=== PATIENT | female | born 1955 | race Caucasian/White ===

== ENCOUNTER → 2016-09-02 | Outpatient (CLI) | payer OTHER ==
[~2016-09-02] VITALS: Ht 170.2 cm; Wt 86.6 kg
[~2016-09-02] MED LIST: ADVAIR HFA 230M12 GM INH; ALVESCO6.1 INH; ASPIRIN81 M2 PO; ATENOLOL 25 MG25 M1 PO; DOXYCYCLINE 10100 MG PO; GAMUNEX-C40 GM/400 IJ; HYDROCODON-ACE1 EAC8 PO; HYDROCODONE-AP1 EAC6 PO; HYDROXYCHLOROQ200 M1 PO; INHALER INH; LEVALBUTER1.25 MG/0. INH; NEXIUM40 MG PO; OMEPRAZOLE40 MG PO; ONDANSETRON HCL4 M2 PO; VICODIN ES 7.51 EACH PO; XANAX 0.5 MG0.5 M1 PO; XOPENEX 0.63 MG/3 M1 INH; ZANAFLEX4 MG PO; ZYRTEC10 M2 PO
--- NOTE | ~2016-09-02 | HPC ---
[facility] [address] [place] [address] PAIN MANAGEMENT CONSULTATION Name: JOSE ALANIS Room #: REG [facility]..#: [id number] Admission: 09/02/16 Attend Phys: Matheus Velasco MD Discharge: Date of : 53 Report #: [id number] THIS REPORT FOR: //name// CC: Erasmo العلي MD DATE OF SERVICE: 09/02/2016 CHIEF COMPLAINT: Pain in the low back and down into the buttocks area. HISTORY OF PRESENT ILLNESS: The patient is a 60-year-old female who has been referred to the pain clinic for evaluation of back and leg pain. The patient has been having pain and discomfort, which has been problematic over the last month. She is experiencing pain that radiates down into her left buttocks as well as her leg. She finds that pain makes walking more difficult. She is walking with a limp favoring her left leg. She denies any overt trauma to her back. She notes that the pain is worse with walking. Her gait has changed. She notes that pain has improved somewhat when she is lying down. She describes it as continuous, steady, constant, rhythmic, periodic, shooting, aching, crushing, throbbing, pounding and sharp. She rates it as a 9/10. This has significantly changed her way of life. She and her would like to go walking, but she is unable to. ALLERGIES: SULFA, FLAGYL, ALBUTEROL. MEDICATIONS: Hydrocodone 7.5 mg 1 p.o. q. 6 hours p.r.n. pain, Zanaflex 4 mg 1 p.o. b.i.d., Zofran 4 mg, aspirin 81 mg, Xopenex 1.25 mg, 2 puff inhaler of fluticasone/salmeterol 40 mg, doxycycline, Plaquenil 200 mg, immunoglobulin injection IV, Zyrtec 10 mg, atenolol 25 mg, alprazolam 0.5 mg b.i.d. PAST MEDICAL HISTORY: Anemia, asthma, hypertension, lung disease, gallbladder disease, stomach problems, emotional problems. PAST SURGICAL HISTORY: Hysterectomy in 1989, plantar fasciitis of right foot in 2015, cholecystectomy in 2013, lung biopsy in 01/2016. SOCIAL HISTORY: She is a housewife. Denies use of tobacco. Uses oxygen at home. Denies use of alcoholic beverages. REVIEW OF SYSTEMS: Questionnaire in the chart 14 points reveal fatigue, weakness, dry eyes, wears glasses, shortness of breath, shortness of breath while lying flat, asthma/wheezing, constipation, frequent recurrent headaches, lightheadedness, dizziness, numbness and tingling sensations, nervousness, depression. [facility] [address] [place] [address] PAIN MANAGEMENT CONSULTATION Name: JOSE ALANIS Room #: REG [facility] Justin[facility]ra.#: [id number] Admission: 09/02/16 Attend Phys: Matheus Velasco MD Discharge: Date of : 53 Report #: [id number] LABORATORY DATA: MRI of the lumbar spine dated 08/31/2016 reveals: 1. L4-L5 moderate broad-based left foraminal disk bulge noted. Mild to moderate ligamentum flavum thickening. Moderate to severe bilateral facet arthropathy. Mild left neural foraminal narrowing noted. 2. L5-S1, moderate central canal broad-based disk bulge. Mild to moderate facet arthropathy, left greater than right. Mild to moderate right neural foraminal narrowing. Moderate left neural foraminal narrowing. 3. L1-L2, small paracentral disk protrusion without neural foraminal narrowing. 4. L4 through S1, moderate degenerative disk disease resulting in a mild to moderate neural foraminal narrowing seen greatest along the left L5-S1 level. PHYSICAL EXAMINATION: Height 170 cm, weight 86 kg, BMI 29.9. Blood pressure 116/75, pulse 89, respiratory rate 14, room air saturation 98%. The patient has pain and discomfort in the left leg and walks with an antalgic gait. She somewhat hobbles on her left leg. She has a short gait, which is slow and calculated. She complains of pain and discomfort in the lower portion of her back and pain down into the left leg with numbness in the area of the buttocks and down into her leg. There is a positive straight leg raise on the left. Palpation in the area of the sciatic outflow tract is positive to palpation and reproduces pain and discomfort in the patient's lower back and buttocks area. IMPRESSION: 1. Lumbar radiculopathy involving the L5-S1 nerve root distribution on the left. 2. History of immune problems and the patient is taking immunoglobulin type medications for this on a regular basis. 3. Anxiety. 4. Esophageal reflux. 5. Hypertension, benign. RECOMMENDATION: We discussed treatment options with the patient. Risks and benefits of an epidural steroid injection were discussed. Possible complications were reviewed. A model was used to indicate the area of probable pathology. The patient's MRI was reviewed with her and her . They state that they understand. We will proceed with an epidural steroid injection. Risks and benefits were again reviewed and the patient elects to proceed. PROCEDURE NOTE: The patient was placed in the prone position. Fluoroscopy was used to identify the L5-S1 interspace. This area had been sterilely prepped with Betadine and infiltrated with 0.25% bupivacaine. Total of 80 mg Depo-Medrol, 40 mg triamcinolone and 2 mL of 0.25% bupivacaine was injected. The patient tolerated the procedure well. She notes that her pain decreased from 9 to 5 at the time of discharge. She will follow up in the future as needed. [facility] [address] [place] [address] PAIN MANAGEMENT CONSULTATION Name: JOSE ALANIS Room #: REG [facility]#: [id number] Admission: 09/02/16 Attend Phys: Matheus Velasco MD Discharge: Date of : 53 Report #: [id number] We would like to thank you for letting us participate in her care. We hope she continues to improve. By: [id number] Matheus Velasco MD /quinten
[2016-09-02 11:25] VITALS: BP 116/75
== END | disposition home or self-care (01) ==
LOC: PAIN 06:53
DX: M54.16 Radiculopathy, lumbar region (principal); M48.07 Spinal stenosis, lumbosacral region; J45.909 Unspecified asthma, uncomplicated; I10 Essential (primary) hypertension; Z90.710 Acquired absence of both cervix and uterus; Z90.49 Acquired absence of other specified parts of digestive tract; D64.9 Anemia, unspecified; K21.9 Gastro-esophageal reflux disease without esophagitis; F41.9 Anxiety disorder, unspecified

== ENCOUNTER → 2016-09-23 | Outpatient (CLI) | payer OTHER ==
[~2016-09-23] VITALS: Ht 170.2 cm; Wt 81.6 kg
--- NOTE | ~2016-09-23 | HPC ---
[facility] [place] [address] PAIN MANAGEMENT CONSULTATION Name: JOSE ALANIS Room #: REG [facility].#: [id number] Admission: 09/23/16 Attend Phys: Matheus Velasco MD Discharge: Date of : 53 Report #: [id number] THIS REPORT FOR: //name// CC: Erasmo Copeland MD DATE OF SERVICE: 09/23/2016 FOLLOWUP COMPLAINT: The pain is greater than 50% improved, but is still going down my left buttock. FOLLOWUP HISTORY: The patient is a 60-year-old female who has been seen in the pain clinic because of lumbar radiculopathy. As you may recall, she suffers from pain and discomfort in her lower back. She has had pain which is radiating down into her legs and buttocks. She did have pain, which is more problematic on the right side at the last visit. That side has improved, but she is experiencing pain and discomfort down the left side, which is more problematic at this point. She denies any trauma since we saw her last. She denies any problem with her bowel or bladder function. She is able to engage in activities of daily living with less pain and discomfort. She feels that pain is still problematic and she would like to proceed with another epidural steroid injection. PHYSICAL EXAMINATION: Blood pressure 144/75, pulse 70, respiratory rate 18, and room air O2 saturation is 100%. The patient has pain and discomfort radiating down into the left L5-S1 nerve root distribution. She has gleaned benefit from the last injection and would like to proceed with another. IMPRESSION: 1. Lumbar radiculopathy involving the L5-S1 nerve root on the left. This has improved. The patient has less pain and it is going down into her leg to the level of the posterior thigh. 2. History of immune problem and the patient is taking immunoglobulin types of medications on a regular basis. 3. History of anxiety. 4. History of esophageal reflux. 5. History of hypertension-benign. RECOMMENDATIONS: We discussed treatment options with the patient and her . Risks and benefits of the procedure were again reviewed. The patient has gleaned significant benefit from the last injection and would like to proceed with another. [address] [address] PAIN MANAGEMENT CONSULTATION Name: JOSE ALANIS [facility] [id number] Admission: 09/23/16 Attend Phys: Matheus Velasco MD Discharge: Date of : 53 Report #: [id number] PROCEDURE NOTE: The patient was placed in the prone position. Fluoroscopy was used to identify the L5-S1 nerve interspace. This area had been sterilely prepped with Betadine and infiltrated with 0.25% bupivacaine. Total of 80 mg Depo-Medrol, 40 mg triamcinolone and 2 mL of 0.25% bupivacaine was injected. The patient tolerated the procedure well. There were no complications. Her pain decreased from 6-0 at the time of discharge. She will follow up in the future as needed. We would like to thank you for letting us participate in her care. We hope she continues to improve. By: [id number] Matheus Velasco MD /nt
[2016-09-23 11:13] VITALS: BP 144/75
== END | disposition home or self-care (01) ==
LOC: PAIN 07:13
DX: M54.16 Radiculopathy, lumbar region (principal); K21.9 Gastro-esophageal reflux disease without esophagitis; F41.9 Anxiety disorder, unspecified; I10 Essential (primary) hypertension; J84.9 Interstitial pulmonary disease, unspecified; Z86.2 Personal history of diseases of the blood and blood-forming organs and certain disorders involving the immune mechanism

== ENCOUNTER → 2018-01-04 | Outpatient (CLI) | payer OTHER | LOC: RAD 15:47 | DX: J84.9 Interstitial pulmonary disease, unspecified (principal); J67.9 Hypersensitivity pneumonitis due to unspecified organic dust ==